=== PATIENT | male | born 1965 | race Two or more races ===

== ENCOUNTER 2021-03-07 22:05 | Inpatient (IN) | payer MEDICAID ==
[~2021-03-07] VITALS: Ht 162.6 cm; Wt 123.0 kg
[~2021-03-07 22:05] MED LIST: APIX5TAB PO; LISI-894 PO
[2021-03-07] MEDS ORDERED: ASPIRIN 81 MG CHEWABLE TABLET PO ONE (23:15)
[2021-03-07] MEDS ORDERED: NITROGLYCERIN 2% (1 GM=INCH) PACKET TP ONE (23:15)
[2021-03-07] MEDS ORDERED: SODIUM CHLORIDE 0.9% 1,000 ML IV ONE (23:30)
[2021-03-07 23:35] LABS: COVID AG,FIA SOURCE NASOPHARYNGEAL
[2021-03-07 23:37] LABS: BASOPHILS % (AUTO) 0.5 % (0.0-2.0); EOSINOPHILS % (AUTO) 0 % (1.0-6.0); HEMATOCRIT 43.4 % (41-53); HEMOGLOBIN 14.8 g/dL (13.5-17.5); LYMPHOCYTES # (AUTO) 1.2 K/uL (1.0-4.8); LYMPHOCYTES % (AUTO) 23.7 % (22.0-44.0); MEAN CORPUSCULAR HEMOGLOBIN 29.3 pg (26.0-34.0); MEAN CORPUSCULAR HGB CONC 34.2 G/dL (31.0-37.0); MEAN CORPUSCULAR VOLUME 86 fL (80-100); MONOCYTES # (AUTO) 0.5 K/uL (0.1-1.0); MONOCYTES % (AUTO) 10.4 % (2.0-9.0); NEUTROPHILS # (AUTO) 3.3 K/uL (1.8-7.7); NEUTROPHILS % (AUTO) 65.4 % (40.0-70.0); PLATELET COUNT (AUTO) 189 K/uL (150-450); RED BLOOD CELL COUNT(AUTO) 5.06 MIL/uL (4.50-5.90); RED CELL DISTRIBUTION WIDTH 14.2 % (11.5-14.5)
[2021-03-07 23:46] LABS: ANION GAP 10 mmol/L (8-16); CALCIUM, TOTAL 8.1 mg/dL (8.8-10.5); CARBON DIOXIDE 26 mmol/L (22-29); CHLORIDE 97 mmol/L (98-107); CREATININE 1.03 mg/dL (0.60-1.30); GLOMERULAR FILTR. RATE CALC > 60 mL/min (>60); GLUCOSE,RANDOM 138 mg/dL (70-110); SODIUM SERUM 133 mmol/L (136-145); UREA NITROGEN, BLOOD 15 mg/dL (7-18)
[2021-03-07 23:51] LABS: ALANINE AMINOTRANSFERASE 267 U/L (12-78); ALBUMIN 3.5 g/dL (3.4-5.0); ALKALINE PHOSPHATASE 49 U/L (46-116); ASPARTATE AMINOTRANSFERASE 183 U/L (15-37); BILIRUBIN,TOTAL 0.6 mg/dL (0.1-1.0); TOTAL PROTEIN, SERUM 7.8 g/dL (6.4-8.2)
[2021-03-08] MEDS ORDERED: ACETAMINOPHEN 500 MG TABLET PO ONE
[2021-03-08] MEDS ORDERED: BENZONATATE 100 MG CAPSULE PO ONE
[2021-03-08] MEDS ORDERED: KETOROLAC TROMETHAMINE 30 MG/ML VIAL IVP ONE (01:30)
[2021-03-08] MEDS ORDERED: LEVOFLOXACIN 750 MG/D5% WATER 150 ML IV ONE (02:45)
[2021-03-08] MEDS ORDERED: ONDANSETRON HCL 4 MG/2 ML VIAL IVP PRN (03:00)
[2021-03-08 03:15] LABS: INR 1.1 (0.9-1.1); PROTHROMBIN TIME 11.6 SEC (9.4-11.6)
[2021-03-08 03:25] LABS: D-DIMER 0.37 mg/L FEU (0.00-0.50)
[2021-03-08 04:20] VITALS: BP 124/72
[2021-03-08] MEDS ORDERED: INFLUENZA VIRUS VACCINE QVS 2021-22 (6MO+)/PF 60 MCG/0.5 ML SYRINGE IM. ONE (05:45)
[2021-03-08] MEDS ORDERED: PNEUMOCOCCAL VACCINE POLYVALENT 0.5 ML VIAL [PPSV23] IM. ONE (05:45)
[2021-03-08 07:37] VITALS: BP 102/52
[2021-03-08 08:18] VITALS: BP 146/79
[2021-03-08] MEDS: HEPARIN SODIUM,PORCINE 5,000 UNITS/ML VIAL SQ SCH ×2 (08:20→17:04)
[2021-03-08] MEDS: ACETAMINOPHEN 325 MG TABLET PO PRN ×2 (08:22→18:39)
[2021-03-08] MEDS ORDERED: CARVEDILOL 3.125 MG TABLET PO SCH (09:00)
[2021-03-08] MEDS ORDERED: ASPIRIN 81 MG CHEWABLE TABLET PO SCH (09:00)
[2021-03-08 11:52] VITALS: BP 105/58
[2021-03-08 14:21] LABS: C-REACTIVE PROTEIN QUANT 2.06 mg/dL (0.00-0.30)
[2021-03-08 17:37] VITALS: BP 123/68
[2021-03-08] MEDS ORDERED: NITROGLYCERIN 0.4 MG SUBLINGUAL TABLET #25 SL PRN (17:45)
[2021-03-08 18:38] LABS: ANION GAP 11 mmol/L (8-16); CALCIUM, TOTAL 7.6 mg/dL (8.8-10.5); CARBON DIOXIDE 24 mmol/L (22-29); CHLORIDE 99 mmol/L (98-107); CREATININE 0.89 mg/dL (0.60-1.30); GLOMERULAR FILTR. RATE CALC > 60 mL/min (>60); GLUCOSE,RANDOM 127 mg/dL (70-110); POTASSIUM 3.9 mmol/L (3.5-5.1); SODIUM SERUM 134 mmol/L (136-145); UREA NITROGEN, BLOOD 14 mg/dL (7-18)
[2021-03-08 18:43] LABS: ALANINE AMINOTRANSFERASE 219 U/L (12-78); ALKALINE PHOSPHATASE 41 U/L (46-116); ASPARTATE AMINOTRANSFERASE 154 U/L (15-37); BILIRUBIN,TOTAL 0.6 mg/dL (0.1-1.0)
[2021-03-08] MEDS ORDERED: GuaiFENesin/CODEINE [SUGAR FREE] 200-20MG/10 ML SYRUP UDCUP PO PRN (18:45)
[2021-03-08 20:22] VITALS: BP 138/64
[2021-03-08] MEDS: GuaiFENesin [SUGAR-FREE] 200 MG/10 ML SOLUTION UDCUP PO PRN (20:24)
[2021-03-08] MEDS: METOPROLOL TARTRATE 25 MG TABLET PO SCH (20:25)
[2021-03-08] MEDS: APIXABAN 5 MG TABLET PO SCH (20:25)
[2021-03-09] VITALS (7 sets, daily range): BP systolic 104–144; BP diastolic 58–91
[2021-03-09] MEDS: GuaiFENesin [SUGAR-FREE] 200 MG/10 ML SOLUTION UDCUP PO PRN ×2 (00:20→04:22)
[2021-03-09] MEDS: CefTRIAXone 1 GM/DEXTROSE 50 ML IV SCH (01:41)
[2021-03-09] MEDS: AZITHROMYCIN 500 MG/NS 250 ML IV SCH (02:54)
[2021-03-09] MEDS: ACETAMINOPHEN 325 MG TABLET PO PRN ×2 (04:22→15:57)
[2021-03-09 07:07] LABS: BASOPHILS % (AUTO) 0.3 % (0.0-2.0); EOSINOPHILS % (AUTO) 0 % (1.0-6.0); HEMATOCRIT 41.3 % (41-53); HEMOGLOBIN 14.3 g/dL (13.5-17.5); LYMPHOCYTES # (AUTO) 1.3 K/uL (1.0-4.8); LYMPHOCYTES % (AUTO) 26.3 % (22.0-44.0); MEAN CORPUSCULAR HEMOGLOBIN 29.5 pg (26.0-34.0); MEAN CORPUSCULAR HGB CONC 34.6 G/dL (31.0-37.0); MEAN CORPUSCULAR VOLUME 86 fL (80-100); MONOCYTES # (AUTO) 0.3 K/uL (0.1-1.0); MONOCYTES % (AUTO) 7.1 % (2.0-9.0); NEUTROPHILS # (AUTO) 3.2 K/uL (1.8-7.7); NEUTROPHILS % (AUTO) 66.3 % (40.0-70.0); PLATELET COUNT (AUTO) 180 K/uL (150-450); RED BLOOD CELL COUNT(AUTO) 4.84 MIL/uL (4.50-5.90)
[2021-03-09 07:19] LABS: ANION GAP 10 mmol/L (8-16); CALCIUM, TOTAL 7.9 mg/dL (8.8-10.5); CARBON DIOXIDE 25 mmol/L (22-29); CHLORIDE 96 mmol/L (98-107); CHOL/HDL RATIO 5.5 (4.2-7.3); CHOLESTEROL 138 mg/dL (131-200); CREATININE 0.96 mg/dL (0.60-1.30); GLOMERULAR FILTR. RATE CALC > 60 mL/min (>60); GLUCOSE,RANDOM 105 mg/dL (70-110); HDL CHOLESTEROL 25 mg/dL (40-60); LDL CHOL (CALC.) 96 mg/dL (0-130); POTASSIUM 3.7 mmol/L (3.5-5.1); SODIUM SERUM 131 mmol/L (136-145); TRIGLYCERIDES 85 mg/dL (15-150); UREA NITROGEN, BLOOD 10 mg/dL (7-18)
[2021-03-09] MEDS ORDERED: REMDESIVIR 200 MG in SODIUM CHLORIDE 0.9% 250 ML IV ONE (08:45)
[2021-03-09 09:04] LABS: ALANINE AMINOTRANSFERASE 200 U/L (12-78); ALBUMIN 3.3 g/dL (3.4-5.0); ALKALINE PHOSPHATASE 45 U/L (46-116); ASPARTATE AMINOTRANSFERASE 172 U/L (15-37); BILIRUBIN,TOTAL 0.6 mg/dL (0.1-1.0); TOTAL PROTEIN, SERUM 7.7 g/dL (6.4-8.2)
[2021-03-09] MEDS: APIXABAN 5 MG TABLET PO SCH ×2 (09:14→20:51)
[2021-03-09] MEDS: METOPROLOL TARTRATE 25 MG TABLET PO SCH ×2 (09:14→20:51)
[2021-03-09] MEDS: BENZONATATE 100 MG CAPSULE PO SCH ×3 (09:14→20:48)
[2021-03-09] MEDS: ASPIRIN 81 MG DR TABLET PO SCH (09:14)
[2021-03-09] MEDS ORDERED: BENZOCAINE/MENTHOL LOZENGE PO PRN (18:00)
[2021-03-09 20:23] LABS: APPEARANCE,URINE CLEAR (CLEAR); BILIRUBIN,URINE NEGATIVE (NEGATIVE); GLUCOSE, URINE (UA) NEGATIVE (NEGATIVE); KETONES,URINE 15 mg/dL (NEGATIVE); LEUKOCYTE ESTERASE ,URINE NEGATIVE (NEGATIVE); NITRATE,URINE NEGATIVE (NEGATIVE); PROTEIN,URINE POS 1+ (NEGATIVE)
[2021-03-09 20:25] LABS: BACTERIA,URINE None Seen /HPF (None Seen); OCCULT BLOOD,URINE SMALL (NEGATIVE); WBC,URINE 0-2 /HPF (0-5)
[2021-03-10] VITALS (7 sets, daily range): BP systolic 126–156; BP diastolic 54–83
[2021-03-10] MEDS: CefTRIAXone 1 GM/DEXTROSE 50 ML IV SCH (02:12)
[2021-03-10] MEDS: ACETAMINOPHEN 325 MG TABLET PO PRN ×3 (03:25→23:51)
[2021-03-10] MEDS: AZITHROMYCIN 500 MG/NS 250 ML IV SCH (03:27)
[2021-03-10 07:43] LABS: ALANINE AMINOTRANSFERASE 160 U/L (12-78); ALBUMIN 3.1 g/dL (3.4-5.0); ALKALINE PHOSPHATASE 40 U/L (46-116); ANION GAP 9 mmol/L (8-16); ASPARTATE AMINOTRANSFERASE 172 U/L (15-37); BILIRUBIN,TOTAL 0.6 mg/dL (0.1-1.0); C-REACTIVE PROTEIN QUANT 4.99 mg/dL (0.00-0.30); CALCIUM, TOTAL 7.7 mg/dL (8.8-10.5); CARBON DIOXIDE 28 mmol/L (22-29); CHLORIDE 96 mmol/L (98-107); CREATININE 0.89 mg/dL (0.60-1.30); FERRITIN 1793 ng/mL (26-388); GLOMERULAR FILTR. RATE CALC > 60 mL/min (>60); GLUCOSE,RANDOM 115 mg/dL (70-110); POTASSIUM 3.7 mmol/L (3.5-5.1); SODIUM SERUM 133 mmol/L (136-145); TOTAL PROTEIN, SERUM 7.6 g/dL (6.4-8.2); UREA NITROGEN, BLOOD 11 mg/dL (7-18)
[2021-03-10] MEDS: REMDESIVIR 100 MG in SODIUM CHLORIDE 0.9% 250 ML IV SCH (09:22)
[2021-03-10] MEDS: APIXABAN 5 MG TABLET PO SCH ×2 (09:25→20:18)
[2021-03-10] MEDS: ASPIRIN 81 MG DR TABLET PO SCH (09:25)
[2021-03-10] MEDS: BENZONATATE 100 MG CAPSULE PO SCH ×3 (09:30→20:18)
[2021-03-10] MEDS: METOPROLOL TARTRATE 25 MG TABLET PO SCH ×2 (09:30→20:18)
[2021-03-10] MEDS ORDERED: DEXAMETHASONE 4 MG TABLET PO ONE (17:00)
[2021-03-10 20:16] LABS: GLUCOMETER DEV NAME(LOC) 5S.1; GLUCOSE,POINT OF CARE 82 MG/DL (70-110)
[2021-03-11 03:45] VITALS: BP 133/88
[2021-03-11 06:42] LABS: ALANINE AMINOTRANSFERASE 122 U/L (12-78); ALBUMIN 2.7 g/dL (3.4-5.0); ALKALINE PHOSPHATASE 39 U/L (46-116); ANION GAP 7 mmol/L (8-16); ASPARTATE AMINOTRANSFERASE 125 U/L (15-37); BILIRUBIN,TOTAL 0.6 mg/dL (0.1-1.0); C-REACTIVE PROTEIN QUANT 5.49 mg/dL (0.00-0.30); CALCIUM, TOTAL 7.9 mg/dL (8.8-10.5); CARBON DIOXIDE 31 mmol/L (22-29); CHLORIDE 98 mmol/L (98-107); CREATININE 0.73 mg/dL (0.60-1.30); FERRITIN 1676 ng/mL (26-388); GLOMERULAR FILTR. RATE CALC > 60 mL/min (>60); GLUCOSE,RANDOM 160 mg/dL (70-110); POTASSIUM 4.1 mmol/L (3.5-5.1); SODIUM SERUM 136 mmol/L (136-145); TOTAL PROTEIN, SERUM 7.2 g/dL (6.4-8.2); UREA NITROGEN, BLOOD 10 mg/dL (7-18)
[2021-03-11 07:41] VITALS: BP 128/63
[2021-03-11] MEDS: METOPROLOL TARTRATE 25 MG TABLET PO SCH ×2 (08:15→21:38)
[2021-03-11] MEDS: ASPIRIN 81 MG DR TABLET PO SCH (08:15)
[2021-03-11] MEDS: BENZONATATE 100 MG CAPSULE PO SCH ×3 (08:15→21:38)
[2021-03-11] MEDS: APIXABAN 5 MG TABLET PO SCH ×2 (08:16→21:38)
[2021-03-11] MEDS: DEXAMETHASONE 4 MG TABLET PO SCH (08:16)
[2021-03-11] MEDS: REMDESIVIR 100 MG in SODIUM CHLORIDE 0.9% 250 ML IV SCH (10:37)
[2021-03-11 11:50] VITALS: BP 122/80
[2021-03-11] MEDS ORDERED: TOCILIZUMAB 800 MG in SODIUM CHLORIDE 0.9% 60 ML IV ONE (14:00)
[2021-03-11 16:38] VITALS: BP 134/70
[2021-03-11 20:06] LABS: LEGIONELLA PNEUMO AG URINE Negative (Negative); S PNEUMO SOURCE Urine; STREP PNEUMONIAE AG URINE Negative (Negative)
[2021-03-11 20:09] VITALS: BP 130/74
[2021-03-11] MEDS: FAMOTIDINE 20 MG TABLET PO SCH (21:38)
[2021-03-11] MEDS: GuaiFENesin [SUGAR-FREE] 200 MG/10 ML SOLUTION UDCUP PO PRN (21:38)
[2021-03-11 23:54] VITALS: BP 135/64
[2021-03-12 00:41] LABS: ABG A-A DIFF O2 619.3 mmHg (10-20.0); ABG BASE EXCESS 3.9 mmol/L (-2.0-3.0); ABG CARBOXYHEMOGLOBIN 0.7 % (0.0-1.5); ABG HCO3 27.7 mmol/L (22.0-26.0); ABG METHEMOGLOBIN 0.3 % (0.0-1.5); ABG OXYGEN SATURATION 89.9 % (95.0-98.0); ABG PCO2 38 mmHg (35-45); ABG PH 7.474 (7.35-7.450); PO2, ARTERIAL BG 55.4 mmHg (84.0-92.0); SITE, BLOOD GAS RT RADIAL; SOURCE, BLOOD GAS ARTERIAL; TEMPERATURE, FAHRENHEIT, BG 98.6 FAHREN (96.0-98.6)
[2021-03-12 00:42] LABS: O2 DEVICE,BLOOD GAS NON REBREATHER (ROOM AIR)
[2021-03-12 04:19] VITALS: BP 115/66
[2021-03-12 07:23] VITALS: BP 142/86
[2021-03-12 08:02] LABS: ALANINE AMINOTRANSFERASE 105 U/L (12-78); ALBUMIN 2.6 g/dL (3.4-5.0); ALKALINE PHOSPHATASE 42 U/L (46-116); ANION GAP 7 mmol/L (8-16); ASPARTATE AMINOTRANSFERASE 95 U/L (15-37); BILIRUBIN,TOTAL 0.5 mg/dL (0.1-1.0); C-REACTIVE PROTEIN QUANT 3.26 mg/dL (0.00-0.30); CALCIUM, TOTAL 7.8 mg/dL (8.8-10.5); CARBON DIOXIDE 29 mmol/L (22-29); CHLORIDE 101 mmol/L (98-107); CREATININE 0.72 mg/dL (0.60-1.30); GLOMERULAR FILTR. RATE CALC > 60 mL/min (>60); GLUCOSE,RANDOM 122 mg/dL (70-110); POTASSIUM 3.9 mmol/L (3.5-5.1); SODIUM SERUM 137 mmol/L (136-145); UREA NITROGEN, BLOOD 14 mg/dL (7-18)
[2021-03-12] MEDS: FAMOTIDINE 20 MG TABLET PO SCH ×2 (09:23→21:00)
[2021-03-12] MEDS: REMDESIVIR 100 MG in SODIUM CHLORIDE 0.9% 250 ML IV SCH (09:23)
[2021-03-12] MEDS: METOPROLOL TARTRATE 25 MG TABLET PO SCH ×2 (09:23→21:00)
[2021-03-12] MEDS: DEXAMETHASONE 4 MG TABLET PO SCH (09:23)
[2021-03-12] MEDS: ASPIRIN 81 MG DR TABLET PO SCH (09:24)
[2021-03-12] MEDS: BENZONATATE 100 MG CAPSULE PO SCH ×3 (09:24→21:00)
[2021-03-12] MEDS: APIXABAN 5 MG TABLET PO SCH ×2 (09:24→21:00)
[2021-03-12 10:08] LABS: FERRITIN 1386 ng/mL (26-388)
[2021-03-12 10:48] VITALS: BP 148/98
[2021-03-12 12:00] VITALS: BP 179/106
[2021-03-12 15:54] LABS: ABG A-A DIFF O2 620.8 mmHg (10-20.0); ABG BASE EXCESS 4.2 mmol/L (-2.0-3.0); ABG CARBOXYHEMOGLOBIN 0.7 % (0.0-1.5); ABG HCO3 28.1 mmol/L (22.0-26.0); ABG METHEMOGLOBIN 0.3 % (0.0-1.5); ABG OXYGEN CONTENT 20.2 mL/dL (15.0-23.0); ABG OXYGEN SATURATION 90.3 % (95.0-98.0); ABG OXYHEMOGLOBIN 89.4 % (94.0-100.0); ABG PCO2 37 mmHg (35-45); ABG PH 7.492 (7.35-7.450); ABG TOTAL HEMOGLOBIN 16.1 G/dL (12.0-18.0); PO2, ARTERIAL BG 55.4 mmHg (84.0-92.0); SOURCE, BLOOD GAS ARTERIAL; TEMPERATURE, FAHRENHEIT, BG 98.6 FAHREN (96.0-98.6)
[2021-03-12 15:58] LABS: SITE, BLOOD GAS LFT RADIAL
[2021-03-12 15:59] LABS: O2 DEVICE,BLOOD GAS HFNC (ROOM AIR)
[2021-03-12 16:00] VITALS: BP 154/94
[2021-03-12 20:00] VITALS: BP 90/58
[2021-03-12] MEDS ORDERED: ETOMIDATE 2 MG/ML 10 ML VIAL IVP ONE (20:00)
[2021-03-12] MEDS ORDERED: ROCURONIUM BROMIDE 10 MG/ML 5 ML VIAL IVP ONE (20:00)
[2021-03-12] MEDS ORDERED: RAPID SEQUENCE KIT [RSI] 1 EACH KIT MISC ONE (20:10)
[2021-03-12 21:03] LABS: ABG BASE EXCESS 2.2 mmol/L (-2.0-3.0); ABG CARBOXYHEMOGLOBIN 0.1 % (0.0-1.5); ABG HCO3 25.8 mmol/L (22.0-26.0); ABG METHEMOGLOBIN 0.3 % (0.0-1.5); ABG OXYGEN CONTENT 21.2 mL/dL (15.0-23.0); ABG OXYGEN SATURATION 89.2 % (95.0-98.0); ABG OXYHEMOGLOBIN 88.8 % (94.0-100.0); ABG PCO2 42 mmHg (35-45); ABG PH 7.417 (7.35-7.450); SOURCE, BLOOD GAS ARTERIAL; TEMPERATURE, FAHRENHEIT, BG 98.5 FAHREN (96.0-98.6)
[2021-03-12 21:04] LABS: O2 DEVICE,BLOOD GAS VENTILATOR (ROOM AIR); PEEP,BG 12 cm H2O; SITE, BLOOD GAS RT RADIAL; SPONTANEOUS VT, BG 502 ml; VT, ABG 500 ml
[2021-03-12] MEDS: PROPOFOL 1000 MG/ISO-OSM 100 ML IV PRN ×2 (22:04→23:10)
[2021-03-12] MEDS: FentaNYL CIT 1000MCG/0.9% NACL 100 ML IV PRN (22:05)
[2021-03-12] MEDS ORDERED: NOREPINEPHRINE 4 MG/D5%-WATER 250 ML IV PRN (23:15)
[2021-03-13] VITALS: BP 97/63
[2021-03-13] MEDS: FentaNYL CIT 1000MCG/0.9% NACL 100 ML IV PRN ×3 (02:04→21:38)
[2021-03-13] MEDS: PROPOFOL 1000 MG/ISO-OSM 100 ML IV PRN ×6 (02:48→20:34)
[2021-03-13 04:01] VITALS: BP 99/55
[2021-03-13 04:15] LABS: GLUCOSE,POINT OF CARE 164 MG/DL (70-110)
[2021-03-13 05:24] LABS: ALANINE AMINOTRANSFERASE 100 U/L (12-78); ALBUMIN 2.5 g/dL (3.4-5.0); ALKALINE PHOSPHATASE 52 U/L (46-116); ANION GAP 9 mmol/L (8-16); ASPARTATE AMINOTRANSFERASE 115 U/L (15-37); BILIRUBIN,TOTAL 0.9 mg/dL (0.1-1.0); CALCIUM, TOTAL 7.8 mg/dL (8.8-10.5); CARBON DIOXIDE 27 mmol/L (22-29); CHLORIDE 103 mmol/L (98-107); CREATININE 0.84 mg/dL (0.60-1.30); FERRITIN 970 ng/mL (26-388); GLOMERULAR FILTR. RATE CALC > 60 mL/min (>60); GLUCOSE,RANDOM 153 mg/dL (70-110); SODIUM SERUM 139 mmol/L (136-145); TOTAL PROTEIN, SERUM 6.4 g/dL (6.4-8.2); UREA NITROGEN, BLOOD 25 mg/dL (7-18)
[2021-03-13 08:00] VITALS: BP 99/65
[2021-03-13] MEDS: ASPIRIN 81 MG DR TABLET PO SCH (08:00)
[2021-03-13] MEDS: APIXABAN 5 MG TABLET PO SCH (08:00)
[2021-03-13] MEDS: FAMOTIDINE 20 MG TABLET PO SCH (08:00)
[2021-03-13] MEDS: METOPROLOL TARTRATE 25 MG TABLET PO SCH ×2 (08:01→21:00)
[2021-03-13] MEDS: BENZONATATE 100 MG CAPSULE PO SCH ×3 (08:01→21:00)
[2021-03-13] MEDS: REMDESIVIR 100 MG in SODIUM CHLORIDE 0.9% 250 ML IV SCH (08:06)
[2021-03-13] MEDS ORDERED: SODIUM CHLORIDE 0.9% 100 ML ONE (08:57)
[2021-03-13] MEDS ORDERED: DEXAMETHASONE 2 MG TABLET PO SCH (09:00)
[2021-03-13 10:23] LABS: ABG A-A DIFF O2 619.9 mmHg (10-20.0); ABG BASE EXCESS 1.6 mmol/L (-2.0-3.0); ABG CARBOXYHEMOGLOBIN 0.2 % (0.0-1.5); ABG HCO3 26.2 mmol/L (22.0-26.0); ABG METHEMOGLOBIN 0.3 % (0.0-1.5); ABG OXYGEN CONTENT 19.8 mL/dL (15.0-23.0); ABG OXYGEN SATURATION 91.4 % (95.0-98.0); ABG OXYHEMOGLOBIN 90.9 % (94.0-100.0); ABG PCO2 34 mmHg (35-45); ABG PH 7.487 (7.35-7.450); ABG TOTAL HEMOGLOBIN 15.5 G/dL (12.0-18.0); SOURCE, BLOOD GAS ARTERIAL
[2021-03-13 10:24] LABS: O2 DEVICE,BLOOD GAS VENTILATOR (ROOM AIR); PEEP,BG 12 cm H2O; SITE, BLOOD GAS RT RADIAL; VT, ABG 500 ml
[2021-03-13 12:00] VITALS: BP 111/69
[2021-03-13] MEDS ORDERED: HEPARIN SODIUM,PORCINE 5,000 UNITS/ML VIAL IVP ONE (12:45)
[2021-03-13] MEDS ORDERED: HEPARIN SODIUM,PORCINE 5,000 UNITS/ML VIAL IVP PRN ×2 (12:45)
[2021-03-13 13:10] LABS: BASOPHILS % (AUTO) 0.9 % (0.0-2.0); EOSINOPHILS % (AUTO) 0.1 % (1.0-6.0); HEMATOCRIT 44.9 % (41-53); HEMOGLOBIN 14.8 g/dL (13.5-17.5); LYMPHOCYTES # (AUTO) 0.8 K/uL (1.0-4.8); LYMPHOCYTES % (AUTO) 8.6 % (22.0-44.0); MEAN CORPUSCULAR HEMOGLOBIN 28.6 pg (26.0-34.0); MEAN CORPUSCULAR HGB CONC 32.9 G/dL (31.0-37.0); MEAN CORPUSCULAR VOLUME 87 fL (80-100); MONOCYTES # (AUTO) 0.5 K/uL (0.1-1.0); MONOCYTES % (AUTO) 5.4 % (2.0-9.0); NEUTROPHILS # (AUTO) 8.3 K/uL (1.8-7.7); PLATELET COUNT (AUTO) 278 K/uL (150-450); RED BLOOD CELL COUNT(AUTO) 5.16 MIL/uL (4.50-5.90); RED CELL DISTRIBUTION WIDTH 14.3 % (11.5-14.5)
[2021-03-13] MEDS: HEPARIN SODIUM 25000 UNITS/D5W 250 ML IV PRN (13:15)
[2021-03-13 16:00] VITALS: BP 109/68
[2021-03-13 20:05] VITALS: BP 116/68
[2021-03-14 00:25] VITALS: BP 118/70
[2021-03-14] MEDS: PROPOFOL 1000 MG/ISO-OSM 100 ML IV PRN ×8 (00:31→22:34)
[2021-03-14 04:20] VITALS: BP 116/64
[2021-03-14 05:12] LABS: BASOPHILS % (AUTO) 0.2 % (0.0-2.0); EOSINOPHILS % (AUTO) 0.2 % (1.0-6.0); LYMPHOCYTES # (AUTO) 1.3 K/uL (1.0-4.8); LYMPHOCYTES % (AUTO) 11.3 % (22.0-44.0); MEAN CORPUSCULAR HEMOGLOBIN 28.6 pg (26.0-34.0); MEAN CORPUSCULAR HGB CONC 32.5 G/dL (31.0-37.0); MEAN CORPUSCULAR VOLUME 88 fL (80-100); MONOCYTES # (AUTO) 0.6 K/uL (0.1-1.0); MONOCYTES % (AUTO) 5.3 % (2.0-9.0); NEUTROPHILS # (AUTO) 9.2 K/uL (1.8-7.7); PLATELET COUNT (AUTO) 284 K/uL (150-450); RED BLOOD CELL COUNT(AUTO) 5.23 MIL/uL (4.50-5.90); RED CELL DISTRIBUTION WIDTH 13.9 % (11.5-14.5)
[2021-03-14] MEDS: HEPARIN SODIUM 25000 UNITS/D5W 250 ML IV PRN ×2 (05:20→20:00)
[2021-03-14 05:34] LABS: ALANINE AMINOTRANSFERASE 120 U/L (12-78); ALBUMIN 2.6 g/dL (3.4-5.0); ALKALINE PHOSPHATASE 63 U/L (46-116); ANION GAP 6 mmol/L (8-16); ASPARTATE AMINOTRANSFERASE 122 U/L (15-37); BILIRUBIN,TOTAL 0.9 mg/dL (0.1-1.0); CARBON DIOXIDE 29 mmol/L (22-29); CHLORIDE 105 mmol/L (98-107); CREATININE 1.02 mg/dL (0.60-1.30); GLOMERULAR FILTR. RATE CALC > 60 mL/min (>60); GLUCOSE,RANDOM 128 mg/dL (70-110); POTASSIUM 4.2 mmol/L (3.5-5.1); SODIUM SERUM 140 mmol/L (136-145); TOTAL PROTEIN, SERUM 6.4 g/dL (6.4-8.2); UREA NITROGEN, BLOOD 27 mg/dL (7-18)
[2021-03-14 08:00] VITALS: BP 91/50
[2021-03-14] MEDS: ETHYL ALCOHOL 62% ANTISEPTIC NASAL INHALANT 0.6 ML AMPUL NASAL SCH ×2 (08:18→21:00)
[2021-03-14] MEDS: METOPROLOL TARTRATE 25 MG TABLET PO SCH ×2 (08:18→21:00)
[2021-03-14] MEDS: FAMOTIDINE 10 MG/ML 2 ML VIAL IVP SCH (08:19)
[2021-03-14] MEDS: DEXAMETHASONE SOD PHOS 4 MG/ML VIAL IVP SCH (08:19)
[2021-03-14] MEDS: ASPIRIN 81 MG DR TABLET PO SCH (08:19)
[2021-03-14] MEDS: BENZONATATE 100 MG CAPSULE PO SCH ×3 (08:20→21:00)
[2021-03-14] MEDS: FentaNYL CIT 1000MCG/0.9% NACL 100 ML IV PRN ×2 (10:14→17:43)
[2021-03-14 12:00] VITALS: BP 108/71
[2021-03-14] MEDS ORDERED: ETOMIDATE 2 MG/ML 10 ML VIAL IV ONE (15:38)
[2021-03-14 16:00] VITALS: BP 90/57
[2021-03-14 20:20] VITALS: BP 127/78
[2021-03-14 22:35] LABS: ABG A-A DIFF O2 623.2 mmHg (10-20.0); ABG BASE EXCESS 0.9 mmol/L (-2.0-3.0); ABG CARBOXYHEMOGLOBIN 0.7 % (0.0-1.5); ABG METHEMOGLOBIN 0.5 % (0.0-1.5); ABG OXYGEN CONTENT 17.8 mL/dL (15.0-23.0); ABG OXYHEMOGLOBIN 80.2 % (94.0-100.0); ABG PCO2 40 mmHg (35-45); ABG PH 7.421 (7.35-7.450); ABG TOTAL HEMOGLOBIN 15.8 G/dL (12.0-18.0); PO2, ARTERIAL BG 48.3 mmHg (84.0-92.0); SOURCE, BLOOD GAS ARTERIAL; TEMPERATURE, FAHRENHEIT, BG 99.6 FAHREN (96.0-98.6)
[2021-03-14 22:41] LABS: ABG OXYGEN SATURATION 81.2 % (95.0-98.0); O2 DEVICE,BLOOD GAS VENTILATOR (ROOM AIR); SITE, BLOOD GAS RT RADIAL; VT, ABG 500 ml
[2021-03-14 22:44] LABS: PEEP,BG 12 cm H2O; SPONTANEOUS VT, BG 475 ml
[2021-03-15 00:04] VITALS: BP 105/69
[2021-03-15] MEDS: FentaNYL CIT 1000MCG/0.9% NACL 100 ML IV PRN ×4 (00:24→20:21)
[2021-03-15] MEDS: PROPOFOL 1000 MG/ISO-OSM 100 ML IV PRN ×6 (03:31→20:22)
[2021-03-15 04:20] VITALS: BP 102/66
[2021-03-15 05:04] LABS: BASOPHILS % (AUTO) 0.1 % (0.0-2.0); EOSINOPHILS % (AUTO) 2.1 % (1.0-6.0); HEMATOCRIT 45.5 % (41-53); HEMOGLOBIN 14.9 g/dL (13.5-17.5); LYMPHOCYTES # (AUTO) 1.2 K/uL (1.0-4.8); LYMPHOCYTES % (AUTO) 7.1 % (22.0-44.0); MEAN CORPUSCULAR HEMOGLOBIN 28.5 pg (26.0-34.0); MEAN CORPUSCULAR HGB CONC 32.8 G/dL (31.0-37.0); MEAN CORPUSCULAR VOLUME 87 fL (80-100); MONOCYTES # (AUTO) 0.6 K/uL (0.1-1.0); MONOCYTES % (AUTO) 3.5 % (2.0-9.0); NEUTROPHILS # (AUTO) 14.4 K/uL (1.8-7.7); PLATELET COUNT (AUTO) 331 K/uL (150-450); RED BLOOD CELL COUNT(AUTO) 5.24 MIL/uL (4.50-5.90); RED CELL DISTRIBUTION WIDTH 13.8 % (11.5-14.5)
[2021-03-15 05:10] LABS: NEUTROPHILS % (AUTO) 87.2 % (40.0-70.0)
[2021-03-15 05:16] LABS: ALANINE AMINOTRANSFERASE 232 U/L (12-78); ALBUMIN 2.5 g/dL (3.4-5.0); ALKALINE PHOSPHATASE 82 U/L (46-116); ANION GAP 10 mmol/L (8-16); ASPARTATE AMINOTRANSFERASE 274 U/L (15-37); BILIRUBIN,TOTAL 1.8 mg/dL (0.1-1.0); CALCIUM, TOTAL 7.7 mg/dL (8.8-10.5); CARBON DIOXIDE 27 mmol/L (22-29); CHLORIDE 103 mmol/L (98-107); CREATININE 0.98 mg/dL (0.60-1.30); GLOMERULAR FILTR. RATE CALC > 60 mL/min (>60); GLUCOSE,RANDOM 123 mg/dL (70-110); POTASSIUM 3.8 mmol/L (3.5-5.1); SODIUM SERUM 140 mmol/L (136-145); TOTAL PROTEIN, SERUM 6.1 g/dL (6.4-8.2); UREA NITROGEN, BLOOD 25 mg/dL (7-18)
[2021-03-15 08:00] VITALS: BP 150/82
[2021-03-15] MEDS: DEXAMETHASONE SOD PHOS 4 MG/ML VIAL IVP SCH (09:27)
[2021-03-15] MEDS: FAMOTIDINE 10 MG/ML 2 ML VIAL IVP SCH (09:28)
[2021-03-15] MEDS: ETHYL ALCOHOL 62% ANTISEPTIC NASAL INHALANT 0.6 ML AMPUL NASAL SCH ×2 (09:28→20:21)
[2021-03-15] MEDS: ASPIRIN 81 MG DR TABLET PO SCH (09:29)
[2021-03-15] MEDS: BENZONATATE 100 MG CAPSULE PO SCH ×3 (09:29→20:27)
[2021-03-15] MEDS: METOPROLOL TARTRATE 25 MG TABLET PO SCH ×2 (09:29→20:27)
[2021-03-15] MEDS ORDERED: SODIUM CHLORIDE 0.9% 250 ML IV ONE (09:42)
[2021-03-15 12:00] VITALS: BP 110/71
[2021-03-15] MEDS: DEXTRAN 70 0.1%/HYPROMELL 0.3% 0.9 ML OPHTHALMIC SOLUTION [PF] OU SCH ×2 (12:00→18:00)
[2021-03-15 16:00] VITALS: BP 118/72
[2021-03-15 20:00] VITALS: BP 123/72
[2021-03-16] VITALS: BP 112/72
[2021-03-16] MEDS: PROPOFOL 1000 MG/ISO-OSM 100 ML IV PRN ×3 (00:03→12:30)
[2021-03-16 04:00] VITALS: BP 122/72
[2021-03-16] MEDS: FentaNYL CIT 1000MCG/0.9% NACL 100 ML IV PRN ×2 (05:35→12:29)
[2021-03-16] MEDS: DEXTRAN 70 0.1%/HYPROMELL 0.3% 0.9 ML OPHTHALMIC SOLUTION [PF] OU SCH ×2 (05:46)
[2021-03-16 05:53] LABS: BASOPHILS % (AUTO) 0.2 % (0.0-2.0); EOSINOPHILS % (AUTO) 1.8 % (1.0-6.0); HEMATOCRIT 44.6 % (41-53); HEMOGLOBIN 14.7 g/dL (13.5-17.5); LYMPHOCYTES # (AUTO) 1.3 K/uL (1.0-4.8); LYMPHOCYTES % (AUTO) 7.3 % (22.0-44.0); MEAN CORPUSCULAR HEMOGLOBIN 28.9 pg (26.0-34.0); MEAN CORPUSCULAR HGB CONC 33.1 G/dL (31.0-37.0); MEAN CORPUSCULAR VOLUME 87 fL (80-100); MONOCYTES # (AUTO) 0.6 K/uL (0.1-1.0); MONOCYTES % (AUTO) 3.8 % (2.0-9.0); NEUTROPHILS # (AUTO) 14.9 K/uL (1.8-7.7); PLATELET COUNT (AUTO) 327 K/uL (150-450); RED BLOOD CELL COUNT(AUTO) 5.11 MIL/uL (4.50-5.90); RED CELL DISTRIBUTION WIDTH 14.5 % (11.5-14.5)
[2021-03-16 06:42] LABS: ALANINE AMINOTRANSFERASE 299 U/L (12-78); ALBUMIN 2.5 g/dL (3.4-5.0); ALKALINE PHOSPHATASE 111 U/L (46-116); ANION GAP 6 mmol/L (8-16); ASPARTATE AMINOTRANSFERASE 200 U/L (15-37); BILIRUBIN,TOTAL 1.6 mg/dL (0.1-1.0); CALCIUM, TOTAL 7.9 mg/dL (8.8-10.5); CARBON DIOXIDE 28 mmol/L (22-29); CHLORIDE 101 mmol/L (98-107); CREATININE 0.93 mg/dL (0.60-1.30); FERRITIN 3082 ng/mL (26-388); GLOMERULAR FILTR. RATE CALC > 60 mL/min (>60); GLUCOSE,RANDOM 142 mg/dL (70-110); SODIUM SERUM 135 mmol/L (136-145); TOTAL PROTEIN, SERUM 6.4 g/dL (6.4-8.2); UREA NITROGEN, BLOOD 29 mg/dL (7-18)
[2021-03-16 06:47] LABS: NEUTROPHILS % (AUTO) 86.9 % (40.0-70.0)
[2021-03-16] MEDS: FAMOTIDINE 10 MG/ML 2 ML VIAL IVP SCH (09:00)
[2021-03-16] MEDS ORDERED: SODIUM CHLORIDE 0.9% 250 ML IV ONE (09:38)
[2021-03-16] MEDS: ETHYL ALCOHOL 62% ANTISEPTIC NASAL INHALANT 0.6 ML AMPUL NASAL SCH (09:49)
[2021-03-16] MEDS: METOPROLOL TARTRATE 25 MG TABLET PO SCH (09:50)
[2021-03-16] MEDS: DEXAMETHASONE SOD PHOS 4 MG/ML VIAL IVP SCH (09:50)
[2021-03-16] MEDS: BENZONATATE 100 MG CAPSULE PO SCH (09:50)
[2021-03-16] MEDS: ASPIRIN 81 MG DR TABLET PO SCH (09:51)
[2021-03-16] MEDS ORDERED: HEPARIN SODIUM 25000 UNITS/D5W 250 ML IV SCH (10:15)
[2021-03-16 10:45] LABS: HEMATOCRIT 44.5 % (41-53); HEMOGLOBIN 14.6 g/dL (13.5-17.5)
[2021-03-16] MEDS ORDERED: SODIUM CHLORIDE 0.9% 500 ML IV ONE (11:28)
[2021-03-16 12:30] VITALS: BP 210/41
[2021-03-16] MEDS ORDERED: MIDAZOLAM HCL 2 MG/2 ML VIAL ONE ×2 (12:38)
[2021-03-16] MEDS ORDERED: MIDAZOLAM HCL 100 MG in SODIUM CHLORIDE 0.9% 180 ML IV PRN (12:45)
[2021-03-16] MEDS ORDERED: CISATRACURIUM BESYLATE 2 MG/ML 10 ML VIAL IVP ONE (12:45)
[2021-03-16] MEDS ORDERED: CISATRACURIUM BESYLATE 100 MG in DEXTROSE 5%-WATER 240 ML IV PRN (12:45)
[2021-03-16] MEDS ORDERED: EPINEPHrine 1:10,000 [1 MG/10 ML] SYRINGE IVP ONE (13:14)
[2021-03-16 18:14] LABS: GLUCOSE,POINT OF CARE 170 MG/DL (70-110)
== END 2021-03-16 13:15 | DRG 720 ==
LOC: EMS 22:08 → 5N 03-08 02:30 → ICU 03-12 11:30
PROVIDERS: ADMIT Internal Medicine; ATTEND Internal Medicine
PROC: XW033E5 Introduction of Remdesivir Anti-infective into Peripheral Vein, Percutaneous Approach, New Technology Group 5 (ICD-10-PCS; 2021-03-09)
PROC: XW033H5 Introduction of Tocilizumab into Peripheral Vein, Percutaneous Approach, New Technology Group 5 (ICD-10-PCS; 2021-03-11)
PROC: 5A0935A Assistance with Respiratory Ventilation, Less than 24 Consecutive Hours, High Flow/Velocity Cannula (ICD-10-PCS; 2021-03-12)
PROC: 5A09357 Assistance with Respiratory Ventilation, Less than 24 Consecutive Hours, Continuous Positive Airway Pressure (ICD-10-PCS; 2021-03-12)
PROC: 5A1945Z Respiratory Ventilation, 24-96 Consecutive Hours (ICD-10-PCS; principal; 2021-03-13)
PROC: 0BH17EZ Insertion of Endotracheal Airway into Trachea, Via Natural or Artificial Opening (ICD-10-PCS; 2021-03-13)
PROC: 05HY33Z Insertion of Infusion Device into Upper Vein, Percutaneous Approach (ICD-10-PCS; 2021-03-14)
PROC: 04HY32Z Insertion of Monitoring Device into Lower Artery, Percutaneous Approach (ICD-10-PCS; 2021-03-16)
DX: A41.89 Other specified sepsis (principal); J12.82 Pneumonia due to coronavirus disease 2019; D68.59 Other primary thrombophilia; U07.1 COVID-19; J80 Acute respiratory distress syndrome; D68.8 Other specified coagulation defects; I46.9 Cardiac arrest, cause unspecified; E66.01 Morbid (severe) obesity due to excess calories; I10 Essential (primary) hypertension; I44.7 Left bundle-branch block, unspecified; R13.10 Dysphagia, unspecified; Z86.718 Personal history of other venous thrombosis and embolism; Z88.8 Allergy status to other drugs, medicaments and biological substances; Z99.11 Dependence on respirator [ventilator] status; Z68.42 Body mass index [BMI] 45.0-49.9, adult
CPT/HCPCS: 36245; 36569; 36600; 71045; 76937; 80048; 80053; 80061; 80076; 81001; 82728; 82805; 82962; 83036; 83880; 84145; 84484; 85014; 85018; 85025; 85379; 85610; 85730; 86140; 87040; 87081; 87449; 87899; 93005; 93970; 94002; 94003; 94660; 99285; G0378; J0171; J0456; J0696; J1100; J1644; J1956; J2250; J2704; J3490; J7030; J7040; J7050; J7060; J8540; Q9967; 36415-L1; 36415-TC; U0003